=== PATIENT | female | born 1970 | race Two or more races ===

== ENCOUNTER 2021-12-13 21:00 | Emergency (ER) | payer OTHER ==
[~2021-12-13] VITALS: Ht 157.5 cm; Wt 72.6 kg
[2021-12-13] MEDS ORDERED: LISINOPRIL20 MG PO (21:16)
[2021-12-13] MEDS ORDERED: CLONAZEPAM0.5 M1 PO (21:16)
[2021-12-13] MEDS ORDERED: NORVASC2.5 M1 (21:16)
[2021-12-13] MEDS ORDERED: DICLOFENAC SODI75 MG PO (21:32)
[2021-12-13] MEDS ORDERED: KETO10TA2 PO (21:40)
== END 2021-12-13 21:46 | disposition home or self-care (01) ==
LOC: ER 21:00
DX: M94.0 Chondrocostal junction syndrome [Tietze] (principal); I10 Essential (primary) hypertension

== ENCOUNTER 2025-08-23 19:22 | Emergency (ER) | payer OTHER ==
[~2025-08-23] VITALS: Ht 157.5 cm; Wt 68.0 kg
[~2025-08-23 19:22] MED LIST: CLONAZEPAM0.5 M1 PO; DICLOFENAC SODI75 MG PO; KETO10TA2 PO; LISINOPRIL20 MG PO; NORVASC2.5 M1
[2025-08-23] MEDS ORDERED: ORPHENADRINE CITRATE 30 MG/ML AMPUL IM ONE (20:15)
[2025-08-23] MEDS ORDERED: KETOROLAC TROMETHAMINE 30 MG VIAL IM ONE (20:15)
[2025-08-23] MEDS ORDERED: NORFLEX100MG PO (22:02)
[2025-08-23] MEDS ORDERED: DICLOFENAC SODI50 MG PO (22:02)
== END 2025-08-23 22:17 ==
LOC: ER 19:23
DX: G89.11 Acute pain due to trauma (principal); R07.89 Other chest pain; I10 Essential (primary) hypertension